=== PATIENT | female | born 1960 | race Two or more races ===

== ENCOUNTER 2020-08-26 14:56 | Emergency (ER) | payer OTHER ==
[~2020-08-26] VITALS: Ht 167.6 cm; Wt 63.5 kg
[~2020-08-26 14:56] MED LIST: MACROBID 100 M100 MG PO; NEURONTIN600 M1; PLAQUENIL; ZANAFLEX4 M1
[2020-08-26] MEDS ORDERED: BENADRYL25 MG (15:31)
== END 2020-08-26 17:54 | disposition home or self-care (01) ==
LOC: ER 14:56
DX: R21 Rash and other nonspecific skin eruption (principal); T80.62XA Other serum reaction due to vaccination, initial encounter; Y92.89 Other specified places as the place of occurrence of the external cause